=== PATIENT | male | born 2000 | race Caucasian/White ===

== ENCOUNTER 2019-01-23 09:23 | Emergency (ER) | payer BC, OTHER ==
[~2019-01-23] VITALS: Ht 185.4 cm; Wt 87.6 kg
--- NOTE | 2019-01-23 10:09 | REP ---
CT brain: 01/24/2019. Indication: Head trauma. Comparison: None. Technique: Unenhanced axial CT images of the brain were obtained from skull base to vertex. Findings: There is no acute intracranial hemorrhage, acute cortical infarction, mass effect, hydrocephalus or acute calvarial fracture. Small left frontal region scalp hematoma. Impression: No acute intracranial process. Electronically Signed by José Antonio Zhong DO 01/23/2019 10:00 A
--- NOTE | 2019-01-23 10:15 | REP ---
CT facial bones: 01/23/2019. Indication: Face trauma. Comparison: None. Technique: Unenhanced axial images of the facial bones were obtained with sagittal and coronal reconstructions provided. Findings: Comminuted minimally displaced bilateral nasal bone fractures are present with rightward angulation. No additional facial bone fractures are present. Right maxillary retention cysts are present. There is minimal periosteal mucosal thickening and a tiny retention cyst within the left maxillary sinus. No acute ocular or intraorbital abnormalities are present. The TMJs are unremarkable. The mastoid air cells are clear. Impression: Bilateral nasal bone fractures. Electronically Signed by José Antonio Zhong DO 01/23/2019 10:07 A
--- NOTE | 2019-01-23 10:16 | REP ---
Bilateral hand series: Eight views. History: Injury in a fall. Findings: Four views of the left hand are compared with the 02/25/2005 prior study. Overall mineralization pattern is normal. No fracture or subluxation is seen. Four views right hand show overall normal mineralization as well. There is no fracture or subluxation seen. Impression: Negative bilateral hand radiographs. No fracture noted. Electronically Signed by Leon Isabel MD 01/23/2019 10:07 A
[2019-01-23 11:17] VITALS: BP 128/71
== END 2019-01-23 11:18 | disposition home or self-care (01) ==
LOC: M ED 09:23
DX: S02.2XXA Fracture of nasal bones, initial encounter for closed fracture (principal); S60.221A Contusion of right hand, initial encounter; S60.222A Contusion of left hand, initial encounter; W19.XXXA Unspecified fall, initial encounter; Y92.099 Unspecified place in other non-institutional residence as the place of occurrence of the external cause; Y93.9 Activity, unspecified; Y99.9 Unspecified external cause status

== ENCOUNTER → 2019-07-16 | Outpatient (REF) | payer OTHER ==
[2019-07-16 12:53] LABS: BASO % 0.8 % (0.0-1.0); EOS # 0.1 10^3/uL (0.0-0.5); EOS % 2.1 % (0.0-3.0); HEMATOCRIT 42.9 % (42.0-52.0); HEMOGLOBIN 14.4 g/dl (13.5-17.5); LYMPH # 1.8 10^3/uL (1.5-5.0); LYMPH % 34.4 % (24.0-44.0); MEAN CORPUSCULAR HEMOGLOBIN 29.8 pg (27.0-33.0); MEAN CORPUSCULAR HGB CONC 33.6 g/dl (32.0-36.5); MEAN CORPUSCULAR VOLUME 88.6 fl (80.0-96.0); MONO # 0.5 10^3/uL (0.0-0.8); MONO % 8.8 % (0.0-5.0); NEUTROPHILS # 2.8 10^3/uL (1.5-8.5); NEUTROPHILS % 53.7 % (36.0-66.0); PLATELET COUNT, AUTOMATED 217 10^3/uL (150-450); RED BLOOD COUNT 4.84 10^6/uL (4.30-6.10); WHITE BLOOD COUNT 5.2 10^3/uL (4.0-10.0)
[2019-07-16 13:00] LABS: ALBUMIN 4.6 GM/DL (3.2-5.2); ALT/SGPT 29 U/L (12-78); BILIRUBIN,TOTAL 1.4 MG/DL (0.2-1.0); BLOOD UREA NITROGEN 12 MG/DL (7-18); CALCIUM LEVEL 9.6 MG/DL (8.5-10.1); CARBON DIOXIDE LEVEL 27 MEQ/L (21-32); CHLORIDE LEVEL 108 MEQ/L (98-107); CHOLESTEROL LEVEL 174 MG/DL (<200); CREATININE FOR GFR 1.03 MG/DL (0.70-1.30); FREE T4 1.08 NG/DL (0.78-1.33); GLUCOSE, FASTING 101 MG/DL (70-100); HDL CHOLESTEROL 71 MG/DL (>40); LDL CHOLESTEROL 87 MG/DL (<100); NON-HDL-C 103 MG/DL; POTASSIUM SERUM 3.8 MEQ/L (3.5-5.1); SODIUM LEVEL 141 MEQ/L (136-145); TOTAL PROTEIN 7.8 GM/DL (6.4-8.2); TRIGLYCERIDES LEVEL 79 MG/DL (<150)
[2019-07-16 13:09] LABS: HEMOGLOBIN A1c 5.1 %
== END ==
LOC: M LAB REF 12:08
PROVIDERS: ATTEND Nurse Practitioner Family
DX: R45.4 Irritability and anger (principal); F41.8 Other specified anxiety disorders; F12.10 Cannabis abuse, uncomplicated; Z13.9 Encounter for screening, unspecified; F10.129 Alcohol abuse with intoxication, unspecified

== ENCOUNTER → 2022-08-03 | Outpatient (CLI) | payer OTHER | LOC: M WUC 12:46 | PROVIDERS: ATTEND Physician Assistant | DX: S60.221A Contusion of right hand, initial encounter (principal) ==